=== PATIENT | male | born 1995 | race American Indian/Alaskan Native ===

== ENCOUNTER 2016-10-31 19:54 | Emergency (ER) | payer OTHER ==
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
[2016-10-31] MEDS ORDERED: IBUPROFEN 600 MG TAB PO ONE (21:09)
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
[2016-10-31 22:26] VITALS: BP 136/78; PULSE 114; RESP 16; TEMP 97.9; O2SAT 93
== END 2016-10-31 22:26 | disposition home or self-care (01) ==
DX: S06.0X0A Concussion without loss of consciousness, initial encounter (principal); S16.1XXA Strain of muscle, fascia and tendon at neck level, initial encounter; F17.200 Nicotine dependence, unspecified, uncomplicated; Z79.4 Long term (current) use of insulin; V48.6XXA Car passenger injured in noncollision transport accident in traffic accident, initial encounter; Y92.410 Unspecified street and highway as the place of occurrence of the external cause

== ENCOUNTER 2017-05-29 15:53 | Emergency (ER) | payer OTHER ==
[2017-05-29 16:07] VITALS: BP 140/66; PULSE 122; RESP 16; TEMP 97.2; O2SAT 95
== END 2017-05-29 16:11 | disposition left against medical advice (07) ==
LOC: EDUNIT#
DX: Z53.21 Procedure and treatment not carried out due to patient leaving prior to being seen by health care provider (principal)

== ENCOUNTER → 2017-08-11 | Outpatient (CLI) | payer OTHER | LOC: BMCIMAGING 11:35 | PROVIDERS: ATTEND Family Medicine | DX: S69.92XA Unspecified injury of left wrist, hand and finger(s), initial encounter (principal) ==

== ENCOUNTER 2017-08-19 13:18 | Emergency (ER) | payer OTHER ==
[2017-08-19 13:30] VITALS: RESP 16
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
[2017-08-19 15:28] VITALS: BP 121/82; PULSE 95; TEMP 98.6; O2SAT 95
== END 2017-08-19 15:26 | disposition home or self-care (01) ==
DX: S60.222A Contusion of left hand, initial encounter (principal); E11.9 Type 2 diabetes mellitus without complications; F17.200 Nicotine dependence, unspecified, uncomplicated; Z79.4 Long term (current) use of insulin; X58.XXXA Exposure to other specified factors, initial encounter

== ENCOUNTER 2019-03-30 10:42 | Emergency (ER) | payer OTHER | END 2019-03-30 12:14 | disposition home or self-care (01) ==